=== PATIENT | male | born 1945 | race Caucasian/White ===

== ENCOUNTER 2017-01-14 07:11 | Day surgery (SDC) | payer MEDICARE, OTHER ==
[2017-01-14] VITALS (13 sets, daily range): BP systolic 125–162; BP diastolic 65–83; PULSE 51–100; RESP 14–26; O2SAT 92–97
[~2017-01-14] VITALS: Ht 180.3 cm; Wt 109.0 kg
[~2017-01-14 07:11] MED LIST: ACET-2605 PO; ASPI-973 PO; Bupivacaine Liposome 1.3% 20 mL Inj INFILTRATE ONE; CHOL400T PO; CeFAZolin Inj 2 GM in IV Premix 1 EACH IV ONE; DUTA0.5C16 PO; LOSA100T29 PO; Lactated Ringer's 1,000 ML IV ONE; MELA1TAB16 PO; MULT-1018 PO; OMEP20TA86 PO; TAMS0.4C98 PO; Vancomycin Inj 1,000 MG in IV Premix 1 EACH IV ONE
[2017-01-14] MEDS ORDERED: Ondansetron 2 mg/mL 2 mL Inj ONE (07:12)
[2017-01-14] MEDS ORDERED: fentaNYL-PF 50 mCg/mL 2 mL Inj ONE (07:12)
[2017-01-14] MEDS ORDERED: Dexamethasone 4 mg/mL Inj ONE (07:12)
[2017-01-14] MEDS ORDERED: Propofol 10,000 mCg/mL 20 mL Inj ONE (07:12)
--- NOTE | 2017-01-14 08:04 | PCM.HPANE ---
Patient Data Surgeon Admitting Provider: Attending Provider:Sebastián Galvan MD Primary Care Physician:Raheel Marcial MD Other Provider:Grace [place] Anesthesia Reason for Visit Left Knee Arthritis Ht/WT & BMI Height (Feet): 5 Height (Inches): 11.00 Weight (Kilograms): 109 Body Mass Index 33.00 Allergies Coded Allergies: No Known Allergies (Unverified , 01/10/17) Past Anesthesia History Anesthesia History: Denies:: Abnormal Airway, Anesthesia Reactions, Difficult Intubation, Fam Anesthesia Reaction Diabetes History Hx Diabetes?: No MRSA MRSA: No Medications Blood Thinner: Aspirin Hypertension Medication: Yes Home Meds Incl Beta Jonathan: No Reported Medications Cholecalciferol (Vitamin D3) (Vitamin D3)400 Unit [id number] Unit PO DAILY 01/10/17 Acetaminophen/Diphenhydramine (Tylenol Pm Ex-Strength Caplet)500 Mg-25 Mg Tablet2 Each PO PRN For Pain 01/10/17 Tamsulosin (Flomax)0.4 Mg Capsule0.4 Mg PO DAILY Ref 0 01/10/17 Omeprazole 20 Mg Tablet.dr20 Mg PO DAILY 01/10/17 Multivitamin (Multi Vitamin Daily)1 Each Tablet1 Each PO DAILY 30 Days Ref 0 01/10/17 Melatonin/Pyridoxine (Melatonin 5 mg Tablet)1 Each Tablet1 Each PO DAILY 01/10/17 Losartan Potassium 100 Mg [id number] Mg PO DAILY 01/10/17 Dutasteride 0.5 Mg Capsule0.5 Mg PO DAILY 01/10/17 Aspirin 81 Mg [id number] Mg PO DAILY Ref 0 01/10/17 History HEENT History: Denies:: Abnormal Airway Cataracts Difficult Intubation Dysphagia Glaucoma Hearing Problem Sinus Problem TMJ Cardiovascular History: Positive for:: Hypertension Denies:: AICD Abdominal Aortic Aneurism Atrial Fibrillation Cardiac Surgery Chest Pain Edema Heart Murmur Irregular Heartbeat Pacemaker Peripheral Vascular Rheumatic Fever Thrombophlebitis Valvular Heart Disease Hx of Respiratory Problem?: No Respiratory History: Denies:: Asthma COPD Emphysema Oxygen Administration Pneumonia Tuberculosis Use of C-PAP Machine Use of Inhalers / NEBS Hx Neurologic Problems?: No Neurological History: Denies:: Alzheimer's Disease CVA Dementia Dizziness Headaches Multiple Sclerosis Parkinson's Disease Seizures TIA Hx of GI Problems?: Yes Gastrointestinal History: Positive for:: Gastroesphageal Reflux Heartburn Denies:: Cirrhosis Diverticulitis Gall Bladder Disease Gastrointestinal Bleeding Hepatitis Hiatal Hernia Liver Disease Rectal Bleeding Hx of Problems?: Yes Genitourinary History: Denies:: Kidney Stones Urinary Tract Infection Other Pertinent History: 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 Pressure Ulcers Hx Musculoskeletal Problems?: Yes Musculoskeletal History: Positive for:: Back Injury (hx low back pain) Musculoskeletal Trauma (left knee current admission problem) Osteoarthritis Denies:: Fibromyalgia Joint Replacement Myasthenia Gravis Hx of Psycho/Social Problems?: No Psycho Social History: Denies:: Anxiety Hx Depression Hx Surgeries?: Yes (left partial nephrectomy, knee arthroscopies, trigger ) Hx Any Other Health Problems?: Yes Other History: Positive for:: Thyroid Disease (nodules thyroid, bx and benign) Denies:: Cancer History Blood Transfusions: Positive for:: Accept Blood Products? Denies:: Blood Transfusions Hx Diabetes: No Hx Alcohol Use: YesAlcoholic Drinks Per Day: three drinks weeklyHx Substance Use: NoHave You Smoked inLast 12 mo: No Stop/Bang S-Snoring: Do You Snore Loudly: No T-Tired: feel tired, fatigued: Yes O-Obsered: Observed not breath: No P-Blood Pressure: treated: Yes B- Body Mass Index > 35 kg/m2: No A- Age over 50: Yes N- Neck Large Circumference: No G- Gender Male: Yes JOEL Total Score: 4 JOEL Risk Assessment: High Risk, =/>3 Yes JOEL Category 2: Yes Risk Assessment Category Category 1A: Patient has history of documented sleep apnea, and HAS NOT received any narcotic, sedative or anesthesia administration during this stay. Category 1B: Patient has history of documented sleep apnea, and HAS received any narcotic , sedative or anesthesia administration during this stay Category 2: Patient has SUSPECTED Obstructive Sleep Apnea, and HAS received any narcotic , sedative or anesthesia administration during this stay. Category 3: Patient has SUSPECTED Obstructive Sleep Apnea and HAS NOT received narcotic, sedative or anesthesia administration during this stay. Category 4: Outpatient in Procedural Areas with known sleep apnea or who screen positive for High Risk via the STOP/BANG questionnaire. Exam Exam Vital Signs Vital Signs Date Time Temp Pulse Resp B/P Pulse Ox O2 Delivery O2 Flow Rate FiO2 01/14/17 07:54 36.0 51 18 138/75 97 Room Air General Appearance: Alert HEENT/AIRWAY: MP 1 Lungs: Clear to Auscultation Heart: Exam Unremarkable Meds/Labs/Diagnostics Admission Meds Current Medications Lactated Ringer's 1,000 ml @ 120 mls/hr [id number] ONCE IV Last administered on 07:18; Start 01/14/17 at 05:00; Stop 01/14/17 at 13:19 Vancomycin/0.9 % Sod Chloride/ Premix (Vancomycin Inj/ IV Premix) 200 ml @ 133.333 mls/hr PREOP ONCE IV Last administered on 01/14/17 07:43; Start 01/14 at 06:00; Stop 01/14/17 at 07:29; Status DC Plan Impression Patient chart reviewed, patient interviewed and anesthestic plan with risks, benefits, and alternatives discussed, and informed consent obtained. NPO Status: BLACK COFFEE AT 0530 ASA Physical Status: ASA1 Normal Healthy Anesthetic Plan: GA Bene/Risks/Altern/Consents: Yes HP Complete Prior to Induction: Yes Danie Bryant MD Jan 14, 2017 08:04
[2017-01-14] MEDS ORDERED: 0.9% Sodium Chloride 100 ML ONE (09:27)
[2017-01-14] MEDS ORDERED: Tranexamic Acid 100 mg/mL 10 mL Inj ONE (09:27)
[2017-01-14] MEDS ORDERED: Lactated Ringer's 500 ML IV PRN (09:59)
[2017-01-14] MEDS ORDERED: Lactated Ringer's 1,000 ML IV SCH (09:59)
[2017-01-14] MEDS ORDERED: EPHEDrine Sulfate 50 mg/mL Inj IVPUSH PRN (10:00)
[2017-01-14] MEDS ORDERED: fentaNYL-PF 50 mCg/mL 2 mL Inj IVPUSH PRN (10:00)
[2017-01-14] MEDS ORDERED: Labetalol 5 mg/mL 4 mL Inj IV PRN (10:00)
[2017-01-14] MEDS ORDERED: Atropine 0.4 mg/mL Inj IVPUSH PRN (10:00)
[2017-01-14] MEDS ORDERED: Ondansetron 2 mg/mL 2 mL Inj IVPUSH PRN (10:00)
[2017-01-14] MEDS ORDERED: Phenylephrine 10,000 mCg/mL Inj IVPUSH PRN (10:00)
[2017-01-14] MEDS ORDERED: Dexamethasone 4 mg/mL Inj IVPUSH PRN (10:00)
[2017-01-14] MEDS ORDERED: MetoCLOpramide 5 mg/mL 2 mL Inj IVPUSH PRN (10:00)
[2017-01-14] MEDS ORDERED: Bupivacaine Liposome 1.3% 20 mL Inj INFILTRATE ONE (10:02)
[2017-01-14] MEDS ORDERED: Gentamicin 40 mg/mL 2 mL Inj IRRIGATION ONE (10:02)
[2017-01-14] MEDS ORDERED: Bupivacaine-MPF 0.25%/EPI 30 mL Inj INJ ONE (10:02)
[2017-01-14] MEDS: HYDROmorphone 1 mg/mL Inj IVPUSH PRN ×2 (11:10→11:44)
--- NOTE | 2017-01-14 11:15 | PCM.ANEP1 ---
Post Anesthesia Phase 1 PACU Phase 1 Assessment Vital Signs Vital Signs Date Time Temp Pulse Resp B/P Pulse Ox O2 Delivery O2 Flow Rate FiO2 01/14/17 07:54 36.0 51 18 138/75 97 Room Air Anesthetic Administered: GA Level of Alertness: Awake, talking CONCEPCION's with Equal Strength: Yes Pain: Yes Pain Scale Score: 6 Nausea or Vomiting: No Oxygen Delivery: Room Air Lungs: Clear to Auscultation Dermatome Level: Full Sensation Summary awake 126/86 hr 78 rr14 sat n93% awake, no issues Danie Bryant MD Jan 14, 2017 11:15
--- NOTE | 2017-01-14 12:52 | PCM.ANEP2 ---
Post Anesthesia Evaluation ASA/CMS Post Anesthesia VS in Patient's Normal Range?: Yes Resp Stable; Airway Patent?: Yes CV Function & Hydration Stable: Yes Mental Status Recovered?: Yes Pain control Satisfactory?: Yes N/V Control Satisfactory?: Yes Danie Bryant MD Jan 14, 2017 12:52
[2017-01-14] MEDS ORDERED: oxyCODONE-Acetamin 5-325 mg Tablet PO ONE ×2 (12:53→16:19)
--- NOTE | 2017-01-14 13:42 | DRSVH ---
PROCEDURE: X-RAY LEFT KNEE, ONE OR TWO VIEWS ([id number]) INDICATIONS: POST OP KNEE SURGERY TECHNIQUE: 2 view(s) of the knee acquired. COMPARISON: [facility], , XR KNEE 1 OR 2VW LT, 07/26/2016, 13:21. FINDINGS: Bones: Patient is status post medial compartment knee joint arthroplasty. Hardware components are i n expected positions. Visualized bony structures are intact. Soft tissues: Overlying postoperative changes are noted. IMPRESSION: Expected appearance following medial compartment arthroplasty. Dictated by: Gamal Chaudhry M.D. on 01/14/2017 at 13:40 Approved by: Gamal Chaudhry M.D. on 01/14/2017 at 13:40
[2017-01-14] MEDS ORDERED: hydrOXYzine Pamoate 25 mg Capsule ONE (16:19)
--- NOTE | 2017-01-15 00:45 | OP ---
[address] [address] OPERATIVE REPORT PATIENT: ROMAN GONZALEZ : 1945 MR#: [id number] ADMIT: 01/14/2017 JOB ID: [id number] DATE OF SURGERY: 01/14/2017 PREOPERATIVE DIAGNOSIS(ES): Medial compartment osteoarthritis, left knee. POSTOPERATIVE DIAGNOSIS(ES): Medial compartment osteoarthritis, left knee. PROCEDURE: 1. Diagnostic arthroscopy to determine appropriateness for unicompartmental knee arthroplasty and evaluate the lateral compartment. 2. Medial compartment unicompartmental knee arthroplasty. SURGEON: Sebastián Galvan MD INFRASTRUCTURE DEVELOPER: Lay Casey PA-C INDICATIONS: This gentleman has had persistent, now disabling pain referred to the medial side of his knee. On evaluation in the clinic, he however, also has lateral joint line tenderness and mild thinning reported on the MRI scan. Therefore, an arthroscopic procedure is indicated to determine appropriateness for unicompartmental knee arthroplasty versus total knee arthroplasty which will be held as a backup. The patient understands and accepts the potential for risks and complications which include but is not limited to, infection, thromboembolic, neurovascular events, as well as potential for progressive arthritis in unresurfaced compartments and implant failure. DESCRIPTION OF PROCEDURE: The patient was prepped and draped in usual sterile fashion. An arthroscope was introduced through an anteromedial incision and the medial compartment was examined which showed advanced medial compartment degenerative changes. The ACL was noted to be intact. The patellofemoral joint was noted to have minimal degenerative changes. Evaluation of the lateral compartment revealed intact normal-appearing lateral articular cartilage on both the femoral and tibial plateau with mild mechanically insignificant fraying of lateral meniscus. Decision was made that he be appropriate candidate for unicompartmental knee arthroplasty which was his strong preference. The arthroscope was subsequently removed from the knee and the knee was lavaged with fluid prior to scope removal. The knee was then positioned and an anteromedial approach was made to the knee. An anteromedial arthrotomy was performed. A patellar osteophyte removed. The tibial guide was assembled with the vertical slot pin applied initially, followed by the corner pin and the 3rd stabilization pin was utilized. The appropriate position varus valgus attitude slope in depth with the cut had been assessed. The cut was made. The guide was removed. The knee was noted to be too tight in extension subsequent to this. Therefore, the 2 mm re-cutting guide was utilized. A re-cut was made and a 9 mm spacer block achieved appropriate alignment and soft tissue tension. Following this, a spacer block was applied, pinned in place and a distal femoral cut was made. The femur was subsequently sized to a 6 femoral component, fixed in appropriate position. Rotation, drill holes and chamfer cuts were made. All bone fragments removed. All meniscal tissue and osteophytes were generally removed from the knee. The tibia was sized to a J, provisionally fixed. Trial reduction was performed and an 8 mm polyethylene produced excellent alignment, soft tissue tension and tracking. The knee was irrigated with a large quantity of sterile irrigant. Pressurized lavage was followed by pressurized cementation of the components. Excess cement was removed during the curing process. Final construct was assembled. The patient was returned to the recovery room in stable condition. He tolerated the procedure well. Deep closure down with #2 Quill followed by 2-0 Vicryl, 3-0 intracuticular stitch.
== END 2017-01-14 23:59 | disposition home or self-care (01) ==
LOC: SAS 07:11
PROVIDERS: ATTEND Orthopaedic Surgery
DX: M17.12 Unilateral primary osteoarthritis, left knee (principal); I10 Essential (primary) hypertension; K21.9 Gastro-esophageal reflux disease without esophagitis; N40.0 Benign prostatic hyperplasia without lower urinary tract symptoms; M54.9 Dorsalgia, unspecified; Z90.5 Acquired absence of kidney; Z79.82 Long term (current) use of aspirin
CPT/HCPCS: 27446; 73560; C1713; C1776; J0131; J0690; J1100; J1170; J1200; J1580; J1885; J2175; J2250; J2405; J3010; J3370; J7120; Q0177